=== PATIENT | male | born 1990 | race Two or more races ===

== ENCOUNTER 2019-09-30 18:04 | Emergency (ER) | payer OTHER ==
[~2019-09-30] VITALS: Ht 185.4 cm; Wt 105.2 kg
[2019-09-30 18:15] VITALS: Ht 185.4 cm; Wt 105.2 kg
[2019-09-30 18:50] VITALS: BP 127/71
== END 2019-09-30 18:50 | disposition home or self-care (01) ==
LOC: ED 18:04
DX: S91.331A Puncture wound without foreign body, right foot, initial encounter (principal); W22.8XXA Striking against or struck by other objects, initial encounter; Y93.89 Activity, other specified; Y92.096 Garden or yard of other non-institutional residence as the place of occurrence of the external cause; Y99.8 Other external cause status
CPT/HCPCS: 90715; Q0092